=== PATIENT | female | born 2000 | race Hispanic/Latino ===

== ENCOUNTER 2020-08-13 20:44 | Day surgery (SDC) | payer SELFPAY ==
[2020-08-13 21:58] VITALS: BMI 37.8
== END 2020-08-13 22:55 | disposition left against medical advice (07) ==
LOC: CSHLD/OP 20:44 → CSHERS 20:44 → CSHLD/OP 22:55
PROVIDERS: ATTEND Obstetrics & Gynecology
DX: M54.9 Dorsalgia, unspecified (principal); R11.2 Nausea with vomiting, unspecified; Z53.29 Procedure and treatment not carried out because of patient's decision for other reasons
CPT/HCPCS: 99282

== ENCOUNTER 2020-08-14 11:45 | Emergency (ER) | payer SELFPAY | END 2020-08-14 11:55 | disposition left against medical advice (07) | LOC: CSHERS 11:45 | DX: Z53.21 Procedure and treatment not carried out due to patient leaving prior to being seen by health care provider (principal) ==